=== PATIENT | female | born 1995 | race Caucasian/White ===

== ENCOUNTER 2017-02-07 16:46 | Emergency (ER) | payer SELFPAY ==
[~2017-02-07] VITALS: Ht 160 cm; Wt 51.5 kg
[2017-02-07 16:48] VITALS: Ht 160 cm; Wt 51.5 kg
[2017-02-07] MEDS ORDERED: IBUPROFEN 200 MG TAB PO ONE (17:00)
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
[2017-02-07] MEDS ORDERED: IBUP400T22 PO (18:32)
== END 2017-02-07 19:50 | disposition home or self-care (01) ==
LOC: FTE 16:46
DX: S90.121A Contusion of right lesser toe(s) without damage to nail, initial encounter (principal); V03.10XA Pedestrian on foot injured in collision with car, pick-up truck or van in traffic accident, initial encounter
CPT/HCPCS: 73630

== ENCOUNTER 2019-02-02 07:40 | Emergency (ER) | payer OTHER ==
[~2019-02-02] VITALS: Ht 157.5 cm; Wt 70.0 kg
[~2019-02-02 07:40] MED LIST: IBUP-1561 PO
[2019-02-02 07:43] VITALS: BP 118/76; PULSE 99; RESP 18; Ht 157.5 cm; Wt 70.0 kg
[2019-02-02] MEDS ORDERED: CEPH-443 PO (07:59)
[2019-02-02] MEDS ORDERED: MUPI22OI2 TOP (07:59)
[2019-02-02] MEDS ORDERED: DIPHTH/TET/ACEL PERTUSS (ADULT) 0.5 ML VIAL IM* ONE (08:00)
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
== END 2019-02-02 08:25 | disposition home or self-care (01) ==
LOC: FTE 07:40
DX: S81.001A Unspecified open wound, right knee, initial encounter (principal); S81.002A Unspecified open wound, left knee, initial encounter; V48.9XXA Unspecified car occupant injured in noncollision transport accident in traffic accident, initial encounter; Z23 Encounter for immunization
CPT/HCPCS: 90471; 90715; Z7502